=== PATIENT | male | born 1955 | race Caucasian/White ===

== ENCOUNTER 2016-10-23 00:27 | Day surgery (SDC) | payer MEDICARE ==
[~2016-10-23] VITALS: Ht 182.9 cm; Wt 70.5 kg
[2016-10-23] VITALS (13 sets, daily range): BP systolic 88–98; BP diastolic 52–58; PULSE 66–80; RESP 14–27; O2SAT 90–96
[~2016-10-23 00:27] MED LIST: ASPI-973 PO; ATOR80TA PO; CARV6.252 PO; INSU100I SUBQ; INSU100I13 SUBQ; LAN125 PO; LORA-302 PO; MIRT45TA5 PO; PANT20TA2 PO; SACU1TAB PO; SPIR50TA2 PO; TORS20TA3 PO
[2016-10-23] MEDS ORDERED: 0.9% Sodium Chloride 1,000 ML ONE (09:58)
[2016-10-23 10:57] LABS: BASOPHILS % (AUTO) 0.6 % (0-3); EOSINOPHILS % (AUTO) 0.8 % (0-5); MONOCYTES % (AUTO) 6.7 % (4-12); Mean Corpuscular Hemoglobin 31.5 pg (27.0-35.0); Mean Corpuscular Volume 91.7 fL (81-100); NEUTROPHILS % (AUTO) 80.8 % (40-74); Platelet Count 284 bil/L (150-400)
[2016-10-23] MEDS ORDERED: 0.9% Sodium Chloride 1,000 ML IV SCH (11:00)
--- NOTE | 2016-10-23 11:46 | NUR ---
JULIEN Admit to [facility] at 1030. Son at bedside and will return for transport home. Patient denies pain at this time. HL X 2 placed and labs obtained. Consent in chart and confirmed. Left foot wound dressing pr wound care in [place]. History and medications reviewed. Pre-procedure teaching done and questions answered.
[2016-10-23] MEDS ORDERED: Heparin 5,000 Units/500 mL NS Premix IV ONE (11:58)
[2016-10-23] MEDS ORDERED: Heparin 1,000 Unit/mL 10 mL Inj ONE ×2 (11:58→13:04)
[2016-10-23] MEDS ORDERED: fentaNYL-PF 50 mCg/mL 2 mL Inj ONE (13:04)
--- NOTE | 2016-10-23 14:32 | DI96 ---
[address] [address] PERIPHERAL CATHETERIZATION/INTERVENTION REPORT PATIENT: DAVID LOPES : 1955 MR#: [id number] ADMIT: 10/23/2016 JOB ID: [id number] PROCEDURE: Abdominal angiography with runoff. INDICATION: Nonhealing ulcer. PROCEDURAL DETAILS: The reader is referred to the procedure log for complete details. Briefly, it was done via right femoral approach using a 4-Jordanian system. A 4-Jordanian pigtail was placed in the distal abdominal aorta and runoff was performed. Selective iliac angiography was also performed. ANGIOGRAPHIC FINDINGS: 1. Aorta is mildly calcified distally but no critical stenosis. 2. Bilateral common iliac arteries are patent. 3. Bilateral internal iliac arteries are patent. 4. Bilateral common iliac arteries are patent. 5. Bilateral profunda is patent. 6. The right superficial femoral artery in its proximal to mid segment has no significant stenosis. Mild luminal irregularities are noted. In its mid to distal segment it has a 50% to 60% lesion. The left SFA proximally has a 40% to 50% lesion; in its mid segment it has a 30% to 40% lesion. 7. Bilateral popliteal arteries are patent. 8. Anterior tibial artery is bilaterally occluded proximally. Tibioperoneal trunk is patent bilaterally. 9. The posterior tibial artery is seen all the way up to the ankle. The peroneal artery is also seen all the way up until the distal leg. Faint reconstitution of the anterior tibial is seen via collaterals distally up until the mid leg. Of note, the left peroneal artery has a 30% to 40% lesion in its proximal segment. No critical stenosis is noted. In summary, this gentleman does not have any critical stenosis in his inflow or outflow. The SFA disease is modest and was overestimated by his duplex. He does have infrapopliteal disease, but at this point he has got two-vessel runoff up until the ankle and the posterior tibial supplies the rest of the foot. This should allow wound healing. His anterior tibial arteries on both sides are severely and diffusely diseased and not truly amenable to percutaneous intervention. I would persist with conservative measures. I have taken the liberty of adding Plavix to his current regimen.
--- NOTE | 2016-10-23 18:13 | NUR ---
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 Son at bedside. Patient denies pain. Mostly sleeping. No bleeding or hematoma at right groin site. Pedal pulses present. Prior to discharge taking PO, ambulatory and void. Instructions reviewed with patient and son, written information given and questions answered.
== END 2016-10-23 23:59 | disposition home or self-care (01) ==
LOC: SOUO 00:27 → EDSTATUS 13:55 → SOUO 23:59
PROVIDERS: ATTEND Internal Medicine Cardiovascular Disease
DX: I70.245 Atherosclerosis of native arteries of left leg with ulceration of other part of foot (principal); L97.529 Non-pressure chronic ulcer of other part of left foot with unspecified severity; I70.201 Unspecified atherosclerosis of native arteries of extremities, right leg; E11.621 Type 2 diabetes mellitus with foot ulcer; E11.42 Type 2 diabetes mellitus with diabetic polyneuropathy; F17.200 Nicotine dependence, unspecified, uncomplicated; I50.22 Chronic systolic (congestive) heart failure; I25.5 Ischemic cardiomyopathy; I48.0 Paroxysmal atrial fibrillation; E78.5 Hyperlipidemia, unspecified; I10 Essential (primary) hypertension; I25.10 Atherosclerotic heart disease of native coronary artery without angina pectoris; I27.2 Other secondary pulmonary hypertension; I48.92 Unspecified atrial flutter; J44.9 Chronic obstructive pulmonary disease, unspecified; I44.7 Left bundle-branch block, unspecified; I25.2 Old myocardial infarction; Z79.899 Other long term (current) drug therapy; Z79.4 Long term (current) use of insulin; Z95.5 Presence of coronary angioplasty implant and graft; Z79.82 Long term (current) use of aspirin; Z95.810 Presence of automatic (implantable) cardiac defibrillator
CPT/HCPCS: 36200; 36415; 75716; 80048; 85025; 93005; C1769; J1200; J1644; J2060; J2250; Q9967

== ENCOUNTER 2016-12-06 17:21 | Inpatient (IN) | payer MEDICARE ==
[~2016-12-06] VITALS: Ht 182.9 cm; Wt 75.3 kg
[2016-12-06 20:05] VITALS: BP 89/68; PULSE 88; RESP 18; O2SAT 97
[2016-12-06] MEDS ORDERED: Atropine 1 mg/10 mL (Code) Syringe IVPUSH PRN (20:20)
[2016-12-06] MEDS ORDERED: Ondansetron 2 mg/mL 2 mL Inj IVPUSH PRN (20:20)
[2016-12-06] MEDS ORDERED: Furosemide 10 mg/mL 10 mL Inj IVPUSH SCH (20:30)
[2016-12-06] MEDS ORDERED: LORazepam 0.5 mg Tablet PO PRN (20:35)
--- NOTE | 2016-12-06 20:43 | PCM.HPMED ---
Subjective Date of Service Dec 06, 2016 Primary Provider: Admitting Physician: Phong Paredes MD Primary Care Physician: Lali Gabriel PA-C Attending Physician: Phong Paredes MD Admit Status: Direct Admit, [facility] Telemetry Chief Complaint: Patient is here transferred from [facility] for further evaluation of increasing shortness of breath, increasing pedal edema, elevated liver enzymes, acute renal failure History of Present Illness: Is a 61-year-old male with a history of end-stage cardiomyopathy who is followed by Dr. Miguel while here at [facility]. According to records from [facility] his last ejection fraction is 12%. Patient also notes that he has recently been hospitalized at [facility]. He is somewhat of a vague historian however. Apparently he also was diagnosed with recent C. difficile colitis. An had undergone by mouth and IV vancomycin as well as by mouth Flagyl according to would be Gen.'s ER note. Patient presented to the emergency room at [facility] for increasing shortness of breath and increasing pedal edema. 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. Findings it would be [facility] included acute on chronic renal failure. His BUN was noted to be 81 with a creatinine of 2.2 calculated GFR is 31. Her would be Gen.'s note BNP is more elevated than usual at 4000-55. Total bili is noted to be 6.4 AST is 1568 and ALT is 693 alkaline phosphatase is 478 had any recent records available from other hospitals. INR is 2.3. Lactic acid is 3.4 troponin 0.06. Digoxin level is 0.5. Patient does deny any chest pain or coughing. He denies any fevers or chills. Review of Systems: Denies any change in urination. All other review of systems are negative except for as in history of present illness. Allergies Coded Allergies: No Known Allergies (Verified Allergy, Unknown, 07/03/15) Home Medications Atorvastatin 80 mg by mouth daily Coreg 6.25 mg by mouth twice a day Digoxin 125 g by mouth daily NovoLog 1 unit subcutaneous when necessary Lantus 45 units subcutaneous at at bedtime daily Claritin 10 mg by mouth daily Mirtazapine 1 tablet by mouth daily Protonix 20 mg by mouth twice a day Entresto of 2426 one tab by mouth twice a day Spironolactone 1 tab by mouth daily Torsemide 20 mg by mouth twice a day Metformin thousand milligrams by mouth twice a day Please note that these medication list was obtained from [facility] emergency room note. PMH History of cardiomyopathy and CAD with EF 12% Recent history of C. difficile colitis History of anxiety History of COPD Peripheral neuropathy Type II diabetes History of chronic kidney disease Family History History of coronary artery disease Social History Hx Alcohol Use: No Hx Substance Use: Yes Hx Tobacco Use: Yes (45 year hx of smoking; quit 2 weeks ago) Smoking Status: Current Every Day Smoker Living Arrangement: with Family Exam Vital Signs Vital Sign - Last Date Time Temp Pulse Resp B/P Pulse Ox O2 Delivery O2 Flow Rate FiO2 12/06/16 20:05 36.5 88 18 89/68 97 Nasal Cannula 2.00 Exam Constitutional: Disheveled male who looks older than his stated age and is somewhat cachectic Head: Normal cephalic atraumatic Chest: Some crackles at his bases bilaterally Cor: Regular rate and rhythm S1-S2 Abdomen: Soft nontender bowel sounds present Extremities reveal 1+ bilateral pedal edema with wound on left foot laterally no significant exudate noted Skin: No rashes does appear icteric Psych: Blunted affect Neuro: Alert and oriented 3, motor strength is intact bilaterally Lab and Diagnostics Labs As in history of present illness also to include white count 11.3 hematocrit 35.9 MCV 90.4 platelets 202 with sodium 125 potassium 5.5 chloride 90 bicarbonate 20 anion gap 15 BUN 81 creatinine 2.2 glucose 306 calcium 8.5 total bili 6.4 total protein 6.9 albumin 3.6 mL the medicine less than 10 salicylates less than 6.0 digoxin 0.5 X-Rays, CTs and MRIs Chest x-rays pending at the time of this dictation 12-lead ECG EKG is paced sensed ventricular paced at rate of 94 Additional Diagnostics: PATIENT: DAVID LOPES : 1955 MR#: [id number] ADMIT: 10/23/2016 JOB ID: [id number] PROCEDURE: Abdominal angiography with runoff. INDICATION: Nonhealing ulcer. PROCEDURAL DETAILS: The reader is referred to the procedure log for complete details. Briefly, it was done via right femoral approach using a 4-Luxembourgish system. A 4-Luxembourgish pigtail was placed in the distal abdominal aorta and runoff was performed. Selective iliac angiography was also performed. ANGIOGRAPHIC FINDINGS: 1. Aorta is mildly calcified distally but no critical stenosis. 2. Bilateral common iliac arteries are patent. 3. Bilateral internal iliac arteries are patent. 4. Bilateral common iliac arteries are patent. 5. Bilateral profunda is patent. 6. The right superficial femoral artery in its proximal to mid segment has no significant stenosis. Mild luminal irregularities are noted. In its mid to distal segment it has a 50% to 60% lesion. The left SFA proximally has a 40% to 50% lesion; in its mid segment it has a 30% to 40% lesion. 7. Bilateral popliteal arteries are patent. 8. Anterior tibial artery is bilaterally occluded proximally. Tibioperoneal trunk is patent bilaterally. 9. The posterior tibial artery is seen all the way up to the ankle. The peroneal artery is also seen all the way up until the distal leg. Faint reconstitution of the anterior tibial is seen via collaterals distally up until the mid leg. Of note, the left peroneal artery has a 30% to 40% lesion in its proximal segment. No critical stenosis is noted. In summary, this gentleman does not have any critical stenosis in his inflow or outflow. The SFA disease is modest and was overestimated by his duplex. He does have infrapopliteal disease, but at this point he has got two-vessel runoff up until the ankle and the posterior tibial supplies the rest of the foot. This should allow wound healing. His anterior tibial arteries on both sides are severely and diffusely diseased and not truly amenable to percutaneous intervention. I would persist with conservative measures. I have taken the liberty of adding Plavix to his current regimen. Assessment & Plan # Acute on chronic systolic congestive heart failure, present on admission - We will proceed with IV Lasix diuresis - Check echocardiogram in a.m. -Check serial cardiac enzymes -Also await further input per cardiology - I did discuss with patient if he is on the heart transplant list and apparently he is not a candidate for this -Check serial BNPs # Acute elevation of liver enzymes, present on admission - We will check abdominal ultrasound - May be due to congestive heart failure and passive congestion of liver -Check acute hepatitis panel # Acute on chronic renal failure, present on admission - Check urinalysis - Check abdominal ultrasound and monitor for elevated postvoid residual - Consider nephrology consultation tomorrow a.m. - May be secondary to poor renal perfusion due to congestive heart failure # Electrolyte disturbances including hyponatremia and borderline hyperkalemia, acute, present on admission - We will hold spironolactone for now and believe this is secondary to acute congestive heart failure and volume overload - Proceed with IV Lasix diuresis # Recent diagnosis of C. difficile colitis, present on admission - According to would be general ER records he is having 3-4 loose stools daily and patient does corroborate that although he is a poor historian so will monitor stool output here - We will place an enteric precautions and check GI PCR -Get records from [facility] in [facility] # Foot ulcer, chronic, present on admission - Wound care consult -Does not appear to be infected # Type II diabetes, chronic, present on admission - Check hemoglobin A1c -Continue his Lantus dosing -Placed on subcutaneous NovoLog protocol # Elevated INR, acute, present on admission - Patient is not on warfarin therapy -Most likely secondary to ongoing acute liver disease -We will give a dose of vitamin K. # DVT prophylaxis - Patient has elevated INR as noted above this will not use subcutaneous anticoagulant but will use SCDs. # CODE STATUS - Discussed with patient and wishes full code Pain Evaluation: Adequate Pain Control GI Prophylaxis: Proton Pump Inhibitor VTE Prophylaxis: SCDs, Other (patient has elevated INR) Resuscitation Status: CPR: Attempt Resuscitation Time spent 60 minutes Umm Jha MD Dec 06, 2016 20:43
[2016-12-06] MEDS ORDERED: Glucose 40% Oral Gel 15 Gm Tube PO PRN (20:45)
[2016-12-06] MEDS ORDERED: Insulin GLARgine 100 Unit/mL Syringe SUBQ SCH (21:00)
--- NOTE | 2016-12-06 21:19 | DRSVH ---
PROCEDURE: X-RAY CHEST ONE VIEW, PORTABLE ([id number]) INDICATIONS: shortness of breath TECHNIQUE: One view of the chest was acquired. COMPARISON: [facility], [facility], CHEST 1 VIEW, 11/29/2016, 17:19. [facility], CR, XR [address] 2VW, 07/07/2015, 9:37. FINDINGS: Surgical changes and devices: Cardiac AICD Lungs and pleura: No pleural effusions or pneumothorax. Lungs are clear. Mediastinum: Mediastinal contours appear normal. Heart size is stable. Bones and chest wall: No suspicious bony lesions. Overlying soft tissues appear unremarkable. IMPRESSION: No acute disease Dictated by: Sebastian Ibarra M.D. on 12/06/2016 at 21:17 Approved by: Sebastian Ibarra M.D. on 12/06/2016 at 21:18
[2016-12-06] MEDS ORDERED: Insulin LISPRO 300 Unit/3 mL Inj SUBQ SCH (22:00)
[2016-12-06 22:10] LABS: TROPONIN T 0.019 ug/L (0.0-0.011)
[2016-12-06] MEDS ORDERED: Phytonadione (Adult) 10 mg/1 mL Inj PO ONE (22:35)
[2016-12-07 00:22] VITALS: BP 84/60; PULSE 86; RESP 21; O2SAT 97
[2016-12-07] MEDS ORDERED: Sodium Chloride LOK Flush 10 mL Syringe IVFLUSH SCH (00:30)
--- NOTE | 2016-12-07 00:34 | NUR ---
CCU Admit note Admitted patient from [facility] @ 1945 via EMS. Alert and oriented x 3, drowsy, appropriate, c/o generalized body weakness. Hypotensive with sbp 80's, map>60's, HR 80's SR, sp02 >92% on 2LPM via NC, has left foot chronic wound, dressing changed, for wound consult AM. MRSA nasal screen sent, contact enteric precaution for possible C.diff, had small BM, sent stool specimen. Given lasix 80 mg IV, pt has not voided despite multiple attempts to void, bladder scanned 915 ml, inserted adams, drained large amt dark sampson uo. INR 2.0, given vitamin K po.
[2016-12-07 00:41] LABS: APPEARANCE,URINE CLEAR (CLEAR,HAZY); COLOR,URINE DARK YELLOW (YELLOW); OCCULT BLOOD,URINE NEGATIVE (NEGATIVE); UROBILINOGEN,URINE NORMAL (NORMAL)
[2016-12-07 00:42] LABS: ICTOTEST,URINE POSITIVE (Negative)
[2016-12-07] MEDS ORDERED: 0.9% Sodium Chloride 500 ML IV ONE (03:05)
[2016-12-07 03:29] LABS: BASOPHILS % (AUTO) 0.3 % (0-3); EOSINOPHILS % (AUTO) 0.8 % (0-5); MONOCYTES % (AUTO) 14.3 % (4-12); Mean Corpuscular Hemoglobin 30.1 pg (27.0-35.0); Mean Corpuscular Volume 85.3 fL (81-100); NEUTROPHILS % (AUTO) 62.5 % (40-74); Platelet Count 194 bil/L (150-400)
[2016-12-07 03:51] LABS: INR 2.02 ratio
[2016-12-07] MEDS ORDERED: DOPamine 800 mg/250 mL D5W Premix IV ONE ×2 (03:53→10:53)
[2016-12-07 04:30] VITALS: BP 82/66; PULSE 124; RESP 22; O2SAT 96
[2016-12-07 04:30] LABS: TROPONIN T 0.029 ug/L (0.0-0.011)
[2016-12-07] MEDS ORDERED: Norepinephrine 8,000 mCg/250 mL NS Premix IV ONE (05:21)
[2016-12-07] MEDS ORDERED: Norepinephrine 8,000 mCg/250 mL D5W Premix IV SCH (05:30)
[2016-12-07] MEDS ORDERED: Digoxin 0.25 mg/mL 2 mL Inj IV ONE ×3 (06:03→07:10)
[2016-12-07] MEDS ORDERED: DOBUTamine 500 mg/250 mL D5W Premix IV ONE (06:42)
[2016-12-07] MEDS ORDERED: Amiodarone 150 mg/100 mL D5W Premix IV ONE (06:43)
[2016-12-07] MEDS ORDERED: Amiodarone 360 mg/200 mL D5W 360 MG, Filter, Taxol 14256-28 1 EACH in IV Premix 1 EACH IV SCH (07:00)
[2016-12-07] MEDS ORDERED: Amiodarone 360 mg/200 mL D5W Premix IV ONE (07:05)
[2016-12-07] MEDS ORDERED: IV Premix 1 EACH IV ONE (07:05)
[2016-12-07] MEDS ORDERED: Amiodarone 150 mg/100 mL D5W 150 MG in IV Premix 1 EACH IV ONE (07:10)
[2016-12-07] MEDS ORDERED: 0.9% Sodium Chloride 250 ML IV SCH (07:15)
[2016-12-07] MEDS ORDERED: DOBUTamine 500 mg/250 mL D5W IV SCH (07:15)
--- NOTE | 2016-12-07 07:22 | ABG ---
DateTimeAnalyzed 07:14:00 -_ pH ____7.404 - 7.350 7.450 pCO2 ___21.4__ -mmHg 35.0 45.0 pO2 ___83.0__ -mmHg 69.0 116 HCO3- ___13.1__ -mmol/L 22.0 26.0 ABE ___-9.7__ -mmol/L -2.0 2.0 tHb ___12.2__ -g/dL O2Hb ___92.9__ -% COHb ____1.5__ -% MetHb ____0.8__ -% sO2 ___95.1__ -% 25.0 FIO2 ___21.0__ -% Drawn By MT - Date/Time Notified____ 07:21:00 -_ Liter_Flow ___15.0__ -L/min Oxygen Device 1 SIMP MASK - Notified By MT - Notified Whom __Kubisty - B 763 -mmHg tO2 ___16.0__ -Vol% Emiliano test N/A -
[2016-12-07 08:00] VITALS: BP 75/60; PULSE 114; RESP 22; O2SAT 90
--- NOTE | 2016-12-07 08:03 | NUR ---
Hypotension/Agitation Given ativan 0.5mg po for anxiety. Hypotensive sbp 60's-80's, HR 80's most of the night, increased HR around 0400 to 120-139, rhythm change ST vs afib rvr, Pt nauseated and more agitated this AM. Hung 500cc NS bolus over 2 hrs and additional 250 cc NS this AM, dopamine gtt was started @ low dose, then,weaned off and switched to levo gtt due to increased HR. Pt adamant to get the adams out despite education and urinary retention, dc'd @ 0430, HR remain up in the 130's, Digoxin 0.25 mg IV x 2 given, amio 150mg bolus x 1, started dobutamine gtt @ 2.5 mcg/kg/min, HR improving to 100's ST with PVC's, 12 lead ekg done, Attending MD at bedside.
[2016-12-07] MEDS ORDERED: Insulin Human REGular Inj 100 UNIT in 0.9% Sodium Chloride-Pha MIX 100 ML IV SCH (08:11)
[2016-12-07] MEDS ORDERED: Pantoprazole 20 mg ER24 Tablet PO SCH (08:30)
[2016-12-07] MEDS ORDERED: ENTRESTO PO SCH (08:30)
--- NOTE | 2016-12-07 08:39 | PCM.PNMED ---
Subjective Date of Service Dec 07, 2016 Subjective Patient quite somnolent this morning. No ROS could be completed. Overnight, the patient was started on dobutamine and norepinephrine. BiPAP was used for a time but currently he was on oxymask. Amiodarone drip started for a narrow complex tachycardia. Exam Vital Signs Vital Sign - Last Date Time Temp Pulse Resp B/P Pulse Ox O2 Delivery O2 Flow Rate FiO2 12/07/16 06:09 134 12/07/16 04:30 36.1 22 82/66 96 Room Air 12/06/16 20:05 2.00 Intake and Output 12/06/16 12/06/16 12/07/16 Cumulative From/Thru 15:00 23:00 07:00 12/06/16 20:00 - 12/07/16 05:31 Intake Total 948 ml 948 ml Output Total 1200 ml 1200 ml Balance -252 ml -252 ml Intake Oral 440 ml 440 ml IV Total 508 ml 508 ml Output Urine Total 1200 ml 1200 ml # Bowel Movements 1 1 Exam General: Patient with oxymask in place, laying in ICU bed, somnolent, no acute distress Mouth: no thrush appreciated, mucous membranes dry Neck: No JVD appreciated, no lymphadenopathy CV: Regular rate and rhythm with no murmur appreciated Respiratory: Expiratory wheezes and otherwise clear breath sounds anteriorly Abdomen: slow bowel tones, non-tender, soft, no organomegaly appreciated Extremities: moderate pitting edema present in both lower extremities; no cyanosis or clubbing present; Left PICC line Pulses: radial pulse present and equivalent bilaterally, dorsalis pedis pulse difficult to appreciate bilaterally Skin: Cool and dry, wound present on left foot : Manzano currently not in place IVs and Medications Medications Reviewed: Medications were reviewed in detail Lab and Diagnostics Result Diagram: 12/07/16 0300 12/07/16 0300 X-Rays, CTs and MRIs PROCEDURE: X-RAY CHEST ONE VIEW, PORTABLE IMPRESSION: No acute disease Dictated by: Sebastian Ibarra M.D. on 12/06/2016 at 21:17 Additional Diagnostics Assessment & Plan Patient is a 71 year old male with a history of systolic CHF, CKD, type 2 DM, and COPD. He presented to [facility] ED on 12/06/16 and direct admitted to [facility] per Dr. Chaney's recommendation. Patient admitted to the ICU and in need of pressor support. Hospital day #1. 1. Acute on chronic systolic congestive heart failure, present on admission - Echo ordered and pending. Last known echo showed EF 10-15%. - Received one dose of IV Lasix overnight. Does not appear to be terribly fluid overloaded at this time. Will hold further dosing and monitor closely. - Would like Dr. Dunne of cardiology to follow along as patient is requiring pressor support. - Continue inotropic support with dobutamine at this time. 2. Acute elevation of liver enzymes, present on admission. - Uncertain of exact etiology at this time. Concern for possible gallstone or congestive hepatopathy/shock liver. - Abdominal ultrasound pending radiologist interpretation. - Dr. King of GI has been consulted and we appreciate his input. - Continue to monitor CMP. - Viral hepatitis panel ordered and pending. 3. Acute on chronic renal failure, present on admission - May be secondary to poor renal perfusion due to congestive heart failure. - Baseline appears to be closer to 1.3. - Abdominal ultrasound ordered and pending. - Will consult Dr. Vizcarra of nephrology and we appreciate her input. 4. Narrow complex ventricular tachycardia, acute, ongoing. - Rate persisting in the 130s. - Amiodarone drip ordered and started. - Continue close telemetry monitoring. - We would appreciate an opinion from Dr. Dunne. 5. Hypotension, acute, ongoing. - Records from [place] indicate hypotension at their facility as well. - Patient requiring pressor support. - Norepinephrine to continue with goal SBP >85. 6. Hyponatremia, acute, present on admission. - Continue to monitor BMP. - Limit free water intake. - Dr. Vizcarra to be consulted as above in #3. 7. Elevated INR, acute, present on admission - Patient is not known to be undergoing chronic anticoagulation therapy. Possibly secondary to ongoing acute liver disease. - Continue to monitor closely. 8. Recent diagnosis of C. difficile colitis, present on admission - Uncertain of the exact history of this and if patient has undergone treatment. - Monitor for BM closely. Awaiting stool PCR. - Enteric contact precautions until more information known. 9. Recent left metatarsal amputation secondary to osteomyelitis with chronic left foot wounds, present prior to admission. - Surgery done at [place] on 11/12/16. - Will ask for consultation from Dr. Taylor on Thursday AM. - Wound care consult ordered and pending. - Float heals and do Q2 turns. - Has been evaluated for possible re-vascularization of the lower extremity. 10. Type II diabetes, chronic, present on admission. - A1c ordered and pending. Uncertain of previous measurement. - Non-DKA insulin drip initiated for better blood glucose control. - Patient currently NPO. Disposition: Patient appears to be critically ill at this time requiring pressor support. Anticipate he will need quite a few days of evaluation and therapy for his numerous chronic conditions that appear to have decompensated. GI Prophylaxis: Proton Pump Inhibitor VTE Prophylaxis: SCDs, Other (patient has elevated INR) Resuscitation Status: CPR: Attempt Resuscitation Attending Statement The patient was seen and examined together with Dr. Lee on 12/07/2016 and I agree with the history, exam and plan as outlined in the note above. . Kirstin Lee DO Dec 07, 2016 08:39 Phong Paredes MD Dec 08, 2016 09:00 # Type II diabetes, chronic, present on admission - Check hemoglobin A1c -Continue his Lantus dosing -Placed on subcutaneous NovoLog protocol # Elevated INR, acute, present on admission - Patient is not on warfarin therapy -Most likely secondary to ongoing acute liver disease -We will give a dose of vitamin K. # DVT prophylaxis - Patient has elevated INR as noted above this will not use subcutaneous anticoagulant but will use SCDs. # CODE STATUS - Discussed with patient and wishes full code GI Prophylaxis: Proton Pump Inhibitor VTE Prophylaxis: SCDs, Other (patient has elevated INR) Resuscitation Status: CPR: Attempt Resuscitation Kirstin Lee DO Dec 07, 2016 08:39
--- NOTE | 2016-12-07 08:45 | DRSVH ---
PROCEDURE: US ABDOMEN ([id number]) INDICATIONS: elevated LFTs TECHNIQUE: Real-time scanning was performed of the abdominal and retroperitoneal organs, with image documentatio n. COMPARISON: None. FINDINGS: Liver: The liver measures 21.0 cm in length and demonstrates normal echotexture. Gallbladder: The gallbladder wall measures up to 4.6 mm in thickness. There is trace pericholecystic fluid. No stones or sludge. Biliary ducts: Intrahepatic bile ducts are non-dilated. Extrahepatic bile duct caliber measures 4.6 mm. Normal is 6-7 mm or less in diameter, or 10 mm or less post-cholecystectomy. Pancreas: Visualized portions of the pancreas are sonographically normal. Spleen: Spleen is normal in size and homogeneous in echotexture. Kidneys: Kidneys are normal in size and echotexture. Right kidney measures 10.5 cm long; left kidne y measures 9.0 cm long. No hydronephrosis or nephrolithiasis. No solid masses. Aorta: The aorta is not visualized due to bowel gas. Iliacs: The iliacs are not visualized. IVC: Intrahepatic inferior vena cava is patent. Miscellaneous: A small amount of fluid is visualized within the bilateral upper quadrants. IMPRESSION: 1. Small amount of hepatosplenic free fluid. 2. No gallstones. Gallbladder wall thickening and pericholecystic fluid. It is unclear whether the ga llbladder wall thickening is secondary to gallbladder hydrops in the setting of more diffuse ascites, or if the gallbladder wall thickening and pericholecystic fluid are associated with acalculous yolette cystitis. If clinical findings are equivocal for cholecystitis, HIDA scan may be helpful to further c haracterize findings. Dictated by: Jasmina Mcgregor M.D. on 12/07/2016 at 8:40 Approved by: Jasmina Mcgregor M.D. on 12/07/2016 at 8:44
--- NOTE | 2016-12-07 11:40 | DRSVH ---
PROCEDURE: X-RAY CHEST ONE VIEW, PORTABLE ([id number]) INDICATIONS: IV tip placement TECHNIQUE: One view of the chest was acquired. COMPARISON: [facility], CR, XR CHEST 1VW (PORTABLE), 12/06/2016, 20:38. None. FINDINGS: Surgical changes and devices: There is a new left PICC, the tip of which is in the right brachiocepha lic vein. Cardiac defibrillator is unchanged. Lungs and pleura: There is diffuse interstitial prominence. Mediastinum: Mediastinal contours appear normal. Heart size is enlarged, as before. Bones and chest wall: No suspicious bony lesions. Overlying soft tissues appear unremarkable. IMPRESSION: 1. New left PICC, the tip of which is in the right brachiocephalic vein and should be repositioned. 2. Interstitial prominence and cardiomegaly suggesting fluid overload. Dictated by: Jasmina Mcgregor M.D. on 12/07/2016 at 11:37 Approved by: Jasmina Mcgregor M.D. on 12/07/2016 at 11:38
--- NOTE | 2016-12-07 11:58 | NUR ---
New PICC line pt found. XR done for tip placement confirmation. Line placed at [facility], on or about 2016, for LTA (osteomyelitis). Line read to be in azygous vein by Dr. Mcgregor. Dr. Nava notified; order to retract line by 2cm. Done with dressing change. 1View chest done, and line now is RIGHT brachiocephalic vein (Dr. Mcgregor). RN made aware, and she will call IVT with instructions.
[2016-12-07 12:00] VITALS: BP 73/59; PULSE 114; RESP 19; O2SAT 88
--- NOTE | 2016-12-07 12:00 | NUR ---
Positive C-Diff & Norovirus Contact, Enteric, Droplet Isolation strictly enforced.
[2016-12-07] MEDS ORDERED: Sodium Chloride LOK Flush 10 mL Syringe IVFLUSH PRN ×2 (12:05)
--- NOTE | 2016-12-07 12:12 | DRSVH ---
[facility] [address] [place] [address] Echocardiogram Report Name: DAVID LOPES Date: 12/07/2016 Height: 72 in Hospital Exam Location: [facility] Weight: 166 lb Gender: Male BSA: 2.0 m2 : 1955 Age: 61 yrs BP: 82/66 mmHg Reason For Study: HEART FAILURE Ordering Physician: HOSPITALIST [facility] Performed By: Libby Bean Referring Physician: KAMILLE Gabriel Interpretation Summary The left ventricle is severely dilated. Left ventricular systolic function is severely reduced. The ejection fraction is estimated to be 10-15%. The right ventricle is moderately dilated. Right ventricular systolic function is severely reduced. Both atria are severely dilated. There is severe mitral regurgitation. There is severe pulmonary hypertension. The right ventricular systolic pressure is estimated at 68 mmHg assuming a right atrial pressure of 15 mm Hg. The IVC is dilated (diameter is greater than 2.1 cm) and it collapses less than 50% with a sniff. This suggests a high right atrial pressure of 15 mm Hg. Compared to the prior exam, left ventricular function is moderately decreased. No other echocardiographic abnormalities seen. Procedure: A two-dimensional transthoracic echocardiogram with color flow and Doppler was performed. The study quality was technically good. Comparison is made with the echocardiogram of 08-17-2014. The patient has a paced rhythm. Left Ventricle: The left ventricle is severely dilated. Left ventricular systolic function is severely reduced. The ejection fraction is estimated to be 10-15%. Compared to the prior exam, left ventricular function is moderately decreased. There is left ventricular diastolic dysfunction. Right Ventricle: The right ventricle is moderately dilated. Right ventricular systolic function is severely reduced. Atria: Both atria are severely dilated. There is no Doppler evidence for an atrial septal defect. Mitral Valve: The mitral valve leaflets appear mildly thickened, but open well. There is severe mitral regurgitation. Aortic Valve: The aortic valve is trileaflet. The aortic valve opens well. No aortic regurgitation is present. Tricuspid Valve: The tricuspid valve leaflets are thin and pliable. There is moderate tricuspid regurgitation. The right ventricular systolic pressure is estimated at 68 mmHg assuming a right atrial pressure of 15 mm Hg. There is severe pulmonary hypertension. Pulmonic Valve: The pulmonic valve is not well seen, but is grossly normal. There is moderate pulmonic regurgitation. Great Vessels: The aortic root is normal size. The dimensions of the ascending aorta are normal. The pulmonary artery is normal size. The IVC is dilated (diameter is greater than 2.1 cm) and it collapses less than 50% with a sniff. This suggests a high right atrial pressure of 15 mm Hg. Pericardium/ Pleura There is no pericardial effusion. There is a small right-sided pleural effusion. MMode/2D Measurements & Calculations LVIDd: 7.6 cm LA dimension: 5.5 cm RA long axis LVOT diam LVIDs: 7.5 cm FS: 1.8 % LA A2 area: 38.0 cm RA area AoV Opening EPSS: 3.4 cm LA A4 area: 35.2 cm IVSd: 0.58 cm LA length (vol): 7.5 cm: 30.3 cm Ao root diam LVPWd: 0.99 cm LA vol: 150.7 ml RA vol LA vol index : 126.ml asc Aorta RA Diam: 3.4 cm : 64.0 mm/ IVC diam: 2.7 cm RVDd major : 7.9 cm LV rae. diameter/BSA LV sys. diameter/BSA RVD2 (mid) (cm/m^2): 3.9 (cm/m^2): 3.8 : 4.6 cm Doppler Measurements & Calculations Ao V2 max MV E max eliseo MV E/A: 3.3 TR max eliseo : 113.5 cm/sec : 125.6 cm/sec Med Peak E' Eliseo : 363.8 cm/sec Ao max PG MV A max eliseo TR max PG : 5.2 mmHg : 37.6 cm/sec E/E' med: 30.4 : 52.9 mmHg Ao mean PG MV P1/2t: 30.4 msecLat Peak E' Eliseo PA V2 max MR ERO: 0.69 cm2 : 61.9 cm/sec LVOT Max Eliseo E/E' lat: 20.3 PA mean PG : 62.6 cm/sec E/e' average: 25.4 : 0.74 mmHg GOLDEN(I,D): 1.6 cm MV A dur: 0.14 sec PA Accel Time sev ratio : 0.04 sec MV dec time MV P1/2t max eliseo Ao V2 mean LV V1 max PG : 0.10 sec : 74.7 cm/sec Ao V2 VTI: 11.9 cm LV V1 VTI: 5.3 cm MVA(P1/2t): 7.2 cm2 GOLDEN(V,D): 2.0 cm2 MR flow rate PA V2 mean GOLDEN indexed to BSA : 259.6 cm3/sec : 39.9 cm/sec (cm^2/m^2): 0.83 MR PISA radius Reading Physician:12:11 PM
--- NOTE | 2016-12-07 12:58 | PCM.CHPMED ---
Subjective Date of Service: Dec 07, 2016 Provider requesting consult: Phong Paredes MD Primary Physician: Admitting Physician: Phong Paredes MD Primary Care Physician: Lali Gabriel PA-C Attending Physician: Phong Paredes MD Admit Status: From the Emergency Department Chief Complaint: Chief Complaint: Abnormal Liver Function Tests History of Clostridium Difficile Colitis PMH HEENT History: Positive for:: Cataracts Glaucoma Hearing Problem Hx Ear Infection Hx Eye Problem Sinus Problem TMJ Cardiovascular History: Positive for:: Congestive Heart Failure Coronary Artery Disease Integumentary History Patient with diabetic foot ulcer in L foot Bedside Blood Glucose: 307 Allergies: Coded Allergies: No Known Allergies (Verified Allergy, Unknown, 07/03/15) Social History Hx Alcohol Use: NoHx Substance Use: NoHx Tobacco Use: Yes (45 year hx of smoking; quit 2 weeks ago) Smoking Status: Current Every Day Smoker Living Arrangement: with Family Exam Vital Signs Vital Sign - Last Date Time Temp Pulse Resp B/P Pulse Ox O2 Delivery O2 Flow Rate FiO2 12/07/16 06:09 134 12/07/16 04:30 36.1 22 82/66 96 Room Air 12/06/16 20:05 2.00 Intake and Output 12/06/16 12/06/16 12/07/16 Cumulative From/Thru 15:00 23:00 07:00 12/06/16 20:00 - 12/07/16 05:31 Intake Total 948 ml 948 ml Output Total 1200 ml 1200 ml Balance -252 ml -252 ml Intake Oral 440 ml 440 ml IV Total 508 ml 508 ml Output Urine Total 1200 ml 1200 ml # Bowel Movements 1 1 Lab and Diagnostics Result Diagram: 12/07/16 0300 12/07/16 0300 Assessment & Plan Pain Evaluation: Adequate Pain Control GI Prophylaxis: Proton Pump Inhibitor VTE Prophylaxis: SCDs, Other (patient has elevated INR) Resuscitation Status: CPR: Attempt Resuscitation Paul King MD Dec 07, 2016 12:58
--- NOTE | 2016-12-07 15:00 | NUR ---
Pt & family conference w/ Hospitalist Pt A&Ox3; decisional. Pt verbalizing clearly his desire to be full code & to transfer to [facility] for further Cardiac support. Family @ bedside, including pt's Spouse, sons, daughter.
--- NOTE | 2016-12-07 15:33 | CONS ---
[address] [address] CONSULTATION REPORT PATIENT: DAVID LOPES : 1955 MR#: [id number] ADMIT: 12/06/2016 JOB ID: [id number] DATE OF SERVICE: 12/07/2016 I have been asked by the hospitalist to assist with the patient's care. He is a 61-year-old male with a long history of chronic ischemic heart disease and severe chronic left ventricular systolic dysfunction and severe mitral regurgitation, hospitalized with progressive weakness and evidence of INCOMPLETE: Dictation ends here.
--- NOTE | 2016-12-07 15:36 | DRSVH ---
PROCEDURE: X-RAY CHEST ONE VIEW, PORTABLE ([id number]) INDICATIONS: PICC LINE PLACEMENT TECHNIQUE: One view of the chest was acquired. COMPARISON: None. FINDINGS: Surgical changes and devices: Cardiac defibrillator is unchanged. The tip of a left PICC persists in the right brachiocephalic vein. Lungs and pleura: Interstitial prominence is unchanged. No pneumothorax. Mediastinum: Mediastinal contours appear normal. Heart size is enlarged, as before. Bones and chest wall: No suspicious bony lesions. Overlying soft tissues appear unremarkable. IMPRESSION: Left PICC tip persists in the right brachiocephalic vein. Dictated by: Jasmina Mcgregor M.D. on 12/07/2016 at 15:34 Approved by: Jasmina Mcgregor M.D. on 12/07/2016 at 15:35
--- NOTE | 2016-12-07 15:51 | CONS ---
[address] [address] CONSULTATION REPORT PATIENT: DAVID LOPES : 1955 MR#: [id number] ADMIT: 12/06/2016 JOB ID: [id number] DATE OF SERVICE: 12/07/2016 HISTORY: This is a 61-year-old gentleman with a long history of chronic ischemic heart disease, severe left ventricular systolic dysfunction, and severe mitral regurgitation, hospitalized with weakness and significant hepatic dysfunction. Transferred from [facility] for further treatment. He has a long, complicated cardiac history dating back to the early 2002 area when he lived in [place]. Previous records are not detailed but indicate history of previous multiple infarctions, culminating in ultimately stent placement, ICD placement, and initiation of amiodarone because of VT. Amiodarone was subsequently stopped in 2013 for unclear reasons. He moved to [facility] around 2012 and has subsequently been followed by Dr. Chaney in our clinic. He has had a history of severe left ventricular systolic dysfunction with an ejection fraction in the range of 10% to 20% for a number of years, in addition to severe mitral insufficiency. His clinical course over the past 10 years has been complicated by multiple ICD generator replacements and lead replacements. At one point, his ICD was infected and all of that had to be removed and replaced on the right side. Most recently, he had a new right ventricular defibrillator lead inserted. This gentleman's clinical course has also been punctuated by problems of peripheral arterial disease. By report, he has had previous PCI to his left superficial femoral artery and known distal vascular disease related to his history of diabetes, hypertension, and smoking. Most recently, he was hospitalized at [place] in October of this year with osteomyelitis and underwent amputation. Subsequent to that, he reportedly developed C. difficile and was hospitalized at [facility] early last week and treated with vancomycin and Flagyl and discharged home, only to present with progressive weakness and evidence of marked elevation in transaminase levels and bilirubin. He was transferred here last night and required vasopressor support for hypotension. The etiology for his hepatic dysfunction is unclear. He does not have significant evidence of systemic venous congestion to suggest hepatic congestion from a cardiac etiology, though at the time I am seeing him this morning, he clearly has evidence of severely impaired cardiac output with Beni-Cruz respiratory pattern, poor peripheral perfusion and hypotension. This gentleman was seen a number times at the [facility] by the [facility] and considered for cardiac transplantation or possible MitraClip procedure for his severe mitral regurgitation. His last visit was with Dr. Torres at the [facility] in May 2015. He was scheduled to follow up after that, but I think his issues with peripheral arterial disease and ICD device lead issues interfered with that, and he has not been seen for the past year and a half. During this period of time, his cardiac medications were adjusted so that he is now on Entresto at low dose and carvedilol at low dose. At the time of his most recent visit with Dr. Chaney in our clinic, his medications included the followin. Low-dose aspirin 81 mg daily. 2. Carvedilol 6.25 mg b.i.d. 3. Lanoxin 125 mcg daily. 4. Entresto 24-26 mg tablets b.i.d. 5. Lipitor 80 mg daily. 6. Spironolactone 25 mg daily. 7. Torsemide 40 mg daily. In addition, he is on pantoprazole 20 mg b.i.d. and has a history of recurrent GI bleeding, contraindicating his ability to be anticoagulated for history of intermittent atrial fibrillation. He is on insulin as well. PHYSICAL EXAMINATION: At the time of my evaluation, the patient is lethargic. He is able to open his eyes and give one- or two-word answers but then falls asleep and has clear-cut Beni-Cruz respiratory pattern with consciousness fading during his apneic episodes. His blood pressures in the mid 70s on 5 mcg/kg/minute of dopamine. Jugular venous pressure is elevated, the degree of which it is elevated is difficult to say but clearly has prominent jugular venous distention. Lung dolan are unremarkable. He has an ICD in place in the right subclavian fossa, somewhat laterally. He has a prominent precordial heave with cardiac systole with a loud S3 gallop and a prominent murmur of mitral regurgitation. Abdomen is mildly tender to palpation in the right upper quadrant, but the liver does not appear enlarged or pulsatile. There is no apparent ascites. Distal extremities are cool with cyanotic kneecaps and feet. His left foot is bandaged. Right foot is moderately cyanotic and hands are cold and cyanotic. He has a mild amount of asterixis noted as well. LABORATORY DATA: Notable for a hemoglobin of 11 and hematocrit of 32. His white count is slightly increased at 10.3. Platelet count is normal at 194,000. His chemistries show hyponatremia with a sodium of 127. Creatinine is increased at 1.91. CO2 is 18. Blood sugar 232. AST is 1300 and ALT is 640. Alkaline phosphatase 422, with a total bilirubin of 3.9. Ammonia level 17. Lactic acid level increased at 2.7. Chest x-ray demonstrates cardiomegaly with ICD leads in place with evidence of increased pulmonary congestion from yesterday's x-ray. DISCUSSION: This gentleman is critically ill with a very poor cardiac output. His echocardiogram again shows severe mitral insufficiency, severe left ventricular dysfunction with an ejection fraction probably around 10%. This gentleman will likely require advanced cardiac support and I think should be considered for transfer to the [facility]. He has been seen there a number times in the past, and other than his smoking history, there was no contraindication for them to proceed with transplant evaluation or MitraClip procedure. If he can be supported for a period of time and perhaps a MitraClip procedure deployed, there may be an opportunity for him to improve. We have limited options here to help with his care, and unless the family and the patient previously decided that they do not wish advanced intervention, strong consideration should be given to transfer to the [facility]. I have spoken with the hospitalist in detail regarding these recommendations. I will be happy to assist as needed.
--- NOTE | 2016-12-07 15:53 | NUR ---
Social Work-screening/discharge: Data:EMR reviewed. Pt is on day 1 of hospitalization for acute hepatic failure per H&P. Pt's insurance is X-1 and PCP is MARLENA Merida. EMR REviewed. SW updated by distance learning administrator that pt is being airlifted to [facility] today at 1700. No other SW needs identified. All updated and agreeable to plan. Assessment:Pt to be transferred to [facility]. Plan:Pt to transfer to [facility] today via airflight at 1700. No other SW needs. AUSTIN Morin
[2016-12-07 16:00] VITALS: BP 85/62; PULSE 124; RESP 19; O2SAT 88
[2016-12-07] MEDS ORDERED: Furosemide 10 mg/mL 10 mL Inj IVPUSH ONE (16:05)
--- NOTE | 2016-12-07 16:19 | PCM.DC.MED ---
Discharge Summary Date of Service Dec 07, 2016 Dates of Hospitalization Date of Hospital Admission Dec 06, 2016 at 19:42 Date of Discharge: Dec 07, 2016 Providers: Admitting Physician: Phong Paredes MD Primary Care Physician: Lali Gabriel PA-C Attending Physician: Phong Paredes MD Diagnosis at Time of Discharge Diagnosis at Time of Discharge 1. Acute on chronic systolic congestive heart failure, present on admission 2. Acute elevation of liver enzymes, present on admission. 3. Acute on chronic renal failure, present on admission 4. Narrow complex ventricular tachycardia, acute, ongoing. 5. Hypotension, acute, ongoing. 6. Hyponatremia, acute, present on admission. 7. Elevated INR, acute, present on admission 8. Recent diagnosis of C. difficile colitis, present on admission 9. Recent left metatarsal amputation secondary to osteomyelitis with chronic left foot wounds, present prior to admission. 10. Type II diabetes, chronic, presume stable at time of admission. Consultations Luis A Dunne MD (cardiology) Marco King MD (gastroenterology) Procedures XRay, CTs & MRIs PROCEDURE: X-RAY CHEST ONE VIEW, PORTABLE FINDINGS: Surgical changes and devices: Cardiac defibrillator is unchanged. The tip of a left PICC persists in the right brachiocephalic vein. Lungs and pleura: Interstitial prominence is unchanged. No pneumothorax. Mediastinum: Mediastinal contours appear normal. Heart size is enlarged, as before Bones and chest wall: No suspicious bony lesions. Overlying soft tissues appear unremarkable. IMPRESSION: Left PICC tip persists in the right brachiocephalic vein. Dictated by: Jasmina Mcgregor M.D. on 12/07/2016 at 15:34 PROCEDURE: X-RAY CHEST ONE VIEW, PORTABLE IMPRESSION: No acute disease Dictated by: Sebastian Ibarra M.D. on 12/06/2016 at 21:17 Cardiac Echo Impression Interpretation Summary The left ventricle is severely dilated. Left ventricular systolic function is severely reduced. The ejection fraction is estimated to be 10-15%. The right ventricle is moderately dilated. Right ventricular systolic function is severely reduced. Both atria are severely dilated. There is severe mitral regurgitation. There is severe pulmonary hypertension. The right ventricular systolic pressure is estimated at 68 mmHg assuming a right atrial pressure of 15 mm Hg. The IVC is dilated (diameter is greater than 2.1 cm) and it collapses less than 50% with a sniff. This suggests a high right atrial pressure of 15 mmHg. Reading Physician:12:11 PM Other Diagnostics PROCEDURE: US ABDOMEN IMPRESSION: 1. Small amount of hepatosplenic free fluid. 2. No gallstones. Gallbladder wall thickening and pericholecystic fluid. It is unclear whether the gallbladder wall thickening is secondary to gallbladder hydrops in the setting of more diffuse ascites, or if the gallbladder wall thickening and pericholecystic fluid are associated with acalculous cholecystitis. If clinical findings are equivocal for cholecystitis, HIDA scan may be helpful to further characterize findings. Dictated by: Jasmina Mcgregor M.D. on 12/07/2016 at 8:40 Brief History Per H&P by Dr. Jha on 12/06/16: Is a 61-year-old male with a history of end-stage cardiomyopathy who is followed by Dr. Miguel while here at [facility]. According to records from [facility] his last ejection fraction is 12%. Patient also notes that he has recently been hospitalized at [facility]. He is somewhat of a vague historian however. Apparently he also was diagnosed with recent C. difficile colitis. An had undergone by mouth and IV vancomycin as well as by mouth Flagyl according to would be Gen.'s ER note. Patient presented to the emergency room at [facility] for increasing shortness of breath and increasing pedal edema. Patient was accepted by Dr. Chaney slab tripper from [facility]. Findings it would be [facility] included acute on chronic renal failure. His BUN was noted to be 81 with a creatinine of 2.2 calculated GFR is 31. Her would be Gen.'s note BNP is more elevated than usual at 4000-55. Total bili is noted to be 6.4 AST is 1568 and ALT is 693 alkaline phosphatase is 478 had any recent records available from other hospitals. INR is 2.3. Lactic acid is 3.4 troponin 0.06. Digoxin level is 0.5. Patient does deny any chest pain or coughing. He denies any fevers or chills. Hospital Course Patient is a 71 year old male with a history of systolic CHF, CKD, type 2 DM, and COPD. He presented to [facility] ED on 12/06/16 and direct admitted to [facility] per Dr. Chaney's recommendation. Patient admitted to the ICU and in need of pressor support. Hospital day #1. Medical therapy ongoing at time of transfer: 1. Acute on chronic systolic congestive heart failure, present on admission - EF 10-15% with severe mitral regurgitation. - Repeat chest x-ray dose show evidence of pulmonary edema. - Received one dose of IV Lasix 80 mg overnight. Receiving a second dose of 80 mg prior to airlift. - Patient receiving dopamine via IV drip at 5 mcg/kg/min and dobutamine at 2 mcg /kg/min. 2. Acute elevation of liver enzymes, present on admission. - Uncertain of exact etiology at this time. Concern for congestive hepatopathy/ shock liver. - Dr. King of GI has been consulted and we appreciate his input. - Continue to monitor CMP. - Viral hepatitis panel ordered and pending. 3. Acute on chronic renal failure, present on admission - May be secondary to poor renal perfusion due to congestive heart failure. - Baseline appears to be closer to 1.3. - Nephrology consultation could not be obtained prior to transfer. 4. Narrow complex ventricular tachycardia, acute, ongoing. - Rate persisting in the 130s. - Patient had amiodarone drip initiated and stopped after 1 hour - initial bolus not completed. - Continue close telemetry monitoring. 5. Hypotension, acute, ongoing. - Records from [facility] indicate hypotension at their facility as well. - Patient requiring pressor support. - Dopamine and dobutamine as above in #1. 6. Hyponatremia, acute, present on admission. - Continue to monitor BMP. - Limit free water intake. - Will give another dose of IV Lasix. 7. Elevated INR, acute, present on admission - Patient is not known to be undergoing chronic anticoagulation therapy. Possibly secondary to ongoing acute liver disease. - Continue to monitor closely. 8. Positive stool PCR for C. difficile colitis and norovirus, ongoing. - Uncertain of the exact history of this and if patient has undergone treatment. - Enteric contact precautions until more information known. 9. Recent left metatarsal amputation secondary to osteomyelitis with chronic left foot wounds, present prior to admission. - Surgery done at [facility] on 11/12/16. - Float heals and do Q2 turns. - Has been evaluated for possible re-vascularization of the lower extremity. - Follow up wound care and infectious disease consultation could not be obtained this weekend. 10. Type II diabetes, chronic, present on admission. - A1c ordered and pending. Uncertain of previous measurement. - Non-DKA insulin drip initiated for better blood glucose control. - Patient currently NPO. Exam Vital Signs (Last) Date Time Temp Pulse Resp B/P Pulse Ox O2 Delivery O2 Flow Rate FiO2 12/07/16 06:09 134 12/07/16 04:30 36.1 22 82/66 96 Room Air 12/06/16 20:05 2.00 Exam Exam done 12/07/16 0800: General: Patient with oxymask in place, laying in ICU bed, no acute distress Mouth: no thrush appreciated, mucous membranes dry Neck: No JVD appreciated, no lymphadenopathy CV: Regular rate and rhythm with no murmur appreciated Respiratory: Expiratory wheezes and otherwise clear breath sounds anteriorly Abdomen: slow bowel tones, non-tender, soft, no organomegaly appreciated Extremities: moderate pitting edema present in both lower extremities; no cyanosis or clubbing present; Left PICC line Pulses: radial pulse present and equivalent bilaterally, dorsalis pedis pulse difficult to appreciate bilaterally Skin: Cool and dry, wound present on left foot : Manzano currently not in place Test 12/06/16 21:15 12/07/16 00:17 12/07/16 03:00 12/07/16 10:45 Magnesium Level 2.0mg/dL (1.6-2.6) Ammonia 17ug/dL (18-53) Hepatitis C Comment . Urine Color Dark yellow (YELLOW) Urine Appearance Clear (CLEAR,HAZY) Urine pH 5.0 (5.0-8.0) Urine Specific Marty 1.025 (1.003-1.035) Urine Protein Tracemg/dL (NEG,TRACE) Urine Glucose (UA) Negativemg/dL (NEGATIVE) Urine Ketones Negativemg/dL (NEGATIVE) Urine Occult Blood Negative (NEGATIVE) Urine Nitrite Negative (NEGATIVE) Urine Bilirubin Small (NEGATIVE) Urine Ictotest Positive (Negative) Urine Urobilinogen Normalmg/dL (NORMAL) Urine Leukocyte Esterase Negative (NEGATIVE) Urine RBC 0-2/hpf (0-2) Urine WBC 0-5/hpf (0-5) Urine Epithelial Cells Few/hpf (NONE-MOD) Urine Crystals Amorphous urates (NONE Urine Bacteria None/hpf (NONE-FEW) Urine Hyaline Casts 02/14/lpf (NONE) Urine Granular Casts None seen (NONE SEEN) Urine Waxy Casts None seen (NONE SEEN) Urine Red Blood Cell Casts None seen (NONE SEEN) Urine White Blood Cell Casts None seen (NONE SEEN) Urine Mucus None seen (None Seen) Urine Trichomonas None seen (NONE SEEN) Urine Yeast None (NONE SEEN) Urine Culture Reflexed Not indicated White Blood Count 10.3th/mm3 (3.8-10.1) Red Blood Count 3.75mil/mm3 (4.40-5.80) Hemoglobin 11.3g/dL (13.8-17.2) Hematocrit 32.0% (41.0-50.0) Mean Corpuscular Volume 85.3fL (81-100) Mean Corpuscular Hemoglobin 30.1pg (27.0-35.0) Mean Corpuscular Hemoglobin Concent 35.3% (32.0-37.0) Red Cell Distribution Width 16.4% (12.3-15.4) Platelet Count 194bil/L (150-400) Neutrophils (%) (Auto) 62.5% (40-74) Lymphocytes (%) (Auto) 21.7% (14-46) Monocytes (%) (Auto) 14.3% (4-12) Eosinophils (%) (Auto) 0.8% (0-5) Basophils (%) (Auto) 0.3% (0-3) Prothrombin Time 21.9sec (8.1-12.5) Prothromb Time International Ratio 2.02ratio Sodium Level 127mEq/L (134-144) Potassium Level 4.8mEq/L (3.5-5.2) Chloride Level 91mEq/L (97-108) Carbon Dioxide Level 18mmol/L (18-29) Blood Urea Nitrogen 80mg/dL (8-27) Creatinine 1.91mg/dL (0.76-1.27) Estimat Glomerular Filtration Rate 38mL/min (>59) Glucose Level 232mg/dL (60-99) Calcium Level 7.7mg/dL (8.5-10.1) Total Bilirubin 3.9mg/dL (0.0-1.2) Aspartate Amino Transf (AST/SGOT) 1312U/L (0-50) Alanine Aminotransferase (ALT/SGPT) 641U/L (0-44) Alkaline Phosphatase 422U/L (25-160) Pro-B-Type Natriuretic Peptide 7879pg/mL (0-210) Total Protein 5.8g/dL (6.4-8.4) Albumin 3.0g/dL (3.4-5.0) Prealbumin 11mg/dL (20-40) Procalcitonin 0.84ng/mL (0.00-0.08) Hold Purple Top Tube Received (Received) Hold Blue Top Tube Received (Received) Troponin T 0.045ug/L (0.0-0.011) Hold Red Top Tube Received (Received) Hold Henderson Top Tube Received (Received) Test 12/07/16 10:54 Lactic Acid Level 2.7mmol/L (0.4-2.0) Discharge Medications Discharge Medications Aspirin (Aspirin) 81 Mg Tablet 81 MG PO DAILY (Reported) Atorvastatin (Lipitor) 80 Mg Tablet 80 MG PO QAM (Reported) Carvedilol (Carvedilol) 6.25 Mg Tablet 6.25 MG PO BID (Reported) Digoxin (Lanoxin) 0.125 Mg Tablet 0.125 MG PO DAILY (Reported) Insulin Aspart (NovoLOG U-100 Pen) 100 Unit/Ml Insuln.pen 1 UNITS SUBQ TIDWM ( Reported) 1unit/per 7grams carbs + 10units Insulin Glargine (Lantus U100 Solostar Insulin Pen) 100 Unit/1 Ml Insuln.pen 63 UNIT SUBQ HS (Reported) Mirtazapine (Mirtazapine) 45 Mg Tablet 30 MG PO HS (Reported) Pantoprazole DR (Pantoprazole DR) 20 Mg Tablet.dr 20 MG PO BID (Reported) Sacubitril/Valsartan (Entresto 24 mg-26 mg Tablet) 24 Mg-26 Mg Tablet 1 EACH PO BID (Reported) Spironolactone (Spironolactone) 50 Mg Tablet 25 MG PO DAILY (Reported) Torsemide (Torsemide) 20 Mg Tablet 40 MG PO DAILY (Reported) As needed Lorazepam (Ativan) 0.5 Mg Tablet 0.5 MG PO BID PRN PRN For Anxiety (Reported) Time spent Greater than 30 minutes was spent in preparation of discharge with greater than 50% of that time dedicated to patient counseling and coordination of care. . Attending Statement The patient was seen and examined together with Dr. Lee on 12/07/2016 and I agree with the history, exam and plan as outlined in the note above. . copies to: Lali Gabriel PA-C; Carmina Chaney MD, Jennifer E DO Dec 07, 2016 15:47 Phong Paredes MD Dec 08, 2016 08:59
[2016-12-07] MEDS ORDERED: Lidocaine Topical 2% 30 mL Jelly ONE (16:29)
--- NOTE | 2016-12-07 16:37 | CONS ---
[address] [address] CONSULTATION REPORT PATIENT: DAVID LOPES : 1955 MR#: [id number] ADMIT: 12/06/2016 JOB ID: [id number] DATE OF SERVICE: 12/07/2016 PHYSICIAN REQUESTING CONSULTATION: Bk Paredes MD. REASON FOR CONSULTATION: Abnormal liver function tests and history of Clostridium difficile colitis. HISTORY OF PRESENT ILLNESS: The patient is a very pleasant 61-year-old gentleman who has a history of congestive heart failure with an EF of approximately 12% who is followed by Dr. Chaney here at [facility]. He was transferred from [facility] yesterday after presenting there with increasing shortness of breath and increasing lower extremity edema, elevated liver enzymes and elevated BUN and creatinine. He was recently admitted to the [facility] and he carries a recent diagnosis of Clostridium difficile colitis and had undergone treatment with Flagyl as well as IV vancomycin. I have been asked to evaluate him regarding his abnormal liver function tests. Upon my interview with the patient, he has no known history of liver disease. He has no history of alcohol abuse. He has no history of viral hepatitis. He has no known history of using any supplemental or herbal medications. He has no family history of liver disease. On review of records from his hospitalization at [facility], I do not see any liver function tests or PT/INR to compare. Currently, he does have some mild shortness of breath. He denies any abdominal pain, nausea, vomiting, fevers, chills, or sweats. He denies any melena, hematemesis. He had been started on some dobutamine for hypotension and dopamine. PAST MEDICAL HISTORY: Significant for: 1. Cardiomyopathy and coronary artery disease, with ejection fraction of, as stated, 12%. 2. History of COPD. 3. Peripheral neuropathy. 4. Type 2 diabetes. 5. Chronic kidney disease. 6. History of anxiety. 7. Recent history of Clostridium difficile colitis. PAST SURGICAL HISTORY: Includes left foot surgery. FAMILY HISTORY: Significant for coronary artery disease, with no family history of colon cancer or liver disease. HOME MEDICATIONS: Listed are: 1. Atorvastatin. 2. Coreg. 3. Digoxin. 4. NovoLog. 5. Lantus. 6. Claritin. 7. Mirtazapine. 8. Protonix. 9. Entresto. 10. Spironolactone. 11. Furosemide. 12. Metformin. ALLERGIES: He has no known drug allergies. REVIEW OF SYSTEMS: His review of systems is otherwise negative, except as mentioned in the HPI. SOCIAL HISTORY: Denies any history of alcohol abuse. He has a history of cigarette smoking, and has done so for the past 45 years. He reports quitting approximately two weeks ago. He lives with his in [place]. PHYSICAL EXAMINATION: His temperature is 36.1, his pulse was 134, blood pressure 82/66, respiratory rate is 22 with O2 saturations of 96% with face mask. Generally, he is a white man who appears to be mildly dyspneic who appears to be mildly cachectic. HEENT: Mild icterus. Oropharynx is clear. Chest exam: Clear to auscultation bilaterally. Cardiovascular exam: S1, S2 heard. Abdomen is mildly distended, soft, nontender without hepatosplenomegaly. Bowel sounds are appreciated. Extremities with trace edema. Left foot is wrapped in a bandage. LABS: Sodium 127, potassium 4.8, chloride of 91, CO2 of 18, BUN of 80, creatinine of 1.91, glucose is 232, his total bili is 3.9, AST is 1312, ALT of 641, alkaline phosphatase is 422, troponin T is 0.029, BNP is 7879, total protein is 5.8, albumin is 3, Procalcitonin is 0.84, prealbumin is 11, his lactic acid is 2.7. His PT is 21.9, INR is 2.02. White blood cell count of 10.3, hemoglobin of 11.3, hematocrit of 32, MCV of 85.3, platelet count is 194. Viral hepatitis serologies are pending. IMAGING: Imaging which included a chest x-ray shows no acute cardiopulmonary disease. Repeat chest x-ray shows interstitial prominence and cardiomegaly suggestive of fluid overload. Abdominal ultrasound without Doppler shows that the intrahepatic bile ducts are not dilated, extrahepatic bile duct measures 4.6, the gallbladder wall measures 4.6 mm in thickness. There is trace pericholecystic fluid. No stones or sludge. Echocardiogram which shows the left ventricle severely dilated. Ejection fraction is estimated to be 10-15%. Left ventricular function is moderately decreased, left ventricular diastolic dysfunction. The right ventricle is moderately dilated. Right ventricular systolic function is severely reduced. There is moderate tricuspid regurgitation. The right ventricular systolic pressure is estimated at 68 mm. There is severe pulmonary hypertension. The IVC is dilated. IMPRESSION AND PLAN: A 61-year-old gentleman with history of severe cardiomyopathy, chronic obstructive pulmonary disease and diabetes who is presenting with shortness of breath, abnormal liver function tests and worsening renal function. PROBLEMS: 1. Abnormal liver function tests. I do not have prior liver function test to compare, however, based on the patient's history and review of medical records mentioned, I do not believe he has a history of elevated liver function testing and therefore this appears to be an acute elevation. His severe heart disease could contribute to this, but as he does not have significant edema or pulmonary edema, congestive heart failure may not be the only etiology. A viral hepatitis panel has been ordered and is pending. I will complete the chronic liver disease workup ordering lab. In the meantime, continue to follow LFTs and PT/INR. Discontinue all nonessential medications that have hepatotoxicity. There is no concern for Tylenol abuse as the patient denies taking. Would continue treating his heart failure and see if his liver function tests improve. In addition, I would recommend repeating the ultrasound of his liver with Doppler to assess flow in the portal and hepatic vessels. 2. History of Clostridium difficile colitis. Would repeat stool studies and keep on precautions that he is currently on until stool studies come back negative. 3. Normocytic anemia. Clinically, there is no evidence of bleeding, and I believe this is secondary to anemia of chronic disease. Thank you for allowing me to participate in the patient's care. If you should have any questions, please do not hesitate to contact me.
--- NOTE | 2016-12-07 17:15 | NUR ---
[employer] arrival for Trans to Pt currently A&Ox3, denies dyspnea, lightheadedness or pain. tolerating low BPs 78-86/60s, HR 112, ST, perm pacer w/ AICD. NRB @ 12L w/ intermittent sats 88-96, due to difficult peripheral circ & EF of 10-15%. interacting approp with [employer] team, able to be decisional. Gtts now Dopamine @ 5mcg/kg/min, Dobutamine @ 2mcg/kg/min as per direct consultation w/ [facility] accepting MD. See Discharge summary, CPOE, EMR. Manzano replaced; also 80mg Lasix admin per order. [id number]. Family dynamics complex; verified phone contact #s. Info relayed to both [facility] & receiving [facility] RN. RN-to-RN bedside report completed to [employer] team. Documentation including CDs, discharge summary to [facility] team. Phone report completed to [facility] RN Selene; discharge summary also directly faxed to her. To [address] for Cardiac further workup. Family @ bedside, included in transfer process as much as possible w/ meeting [employer] Team, being @ pt's side. All belongs to care of pt's Spouse, including cell phone & felting machine operator helper, sleeping bag of pt's. Lift off @ approx 1805. All required documents signed & sent in packet. Note: Family members upset with ea other and having difficulties afterwards; support offered & extensive time with family appeared helpful in resolving complex issues between family members. Pt's son requested to speak w/ Motor Bike Mechanic; Tish Martinez met with them also at length, which also helped them, as stated by several family members.
--- NOTE | 2016-12-07 18:54 | CONS ---
[address] [address] CONSULTATION REPORT PATIENT: DAVID LOPES : 1955 MR#: [id number] ADMIT: 12/06/2016 JOB ID: [id number] DATE OF SERVICE: REQUESTING PHYSICIAN: Phong Paredes MD. REASON FOR CONSULTATION: Management of abnormal kidney function. CHIEF COMPLAINT: Worsening shortness of breath. PRESENT ILLNESS: This is a 61-year-old male with significant past medical history of cardiomyopathy with ejection fraction of 12%, COPD, type 2 diabetes, chronic kidney disease stage 3 who presented to the hospital due to worsening shortness of breath and lower extremity swelling. The patient initially presented to [facility]. The patient later on was transferred to our center for higher level of care. He, unfortunately, was found to have cardiogenic shock. Initial blood pressure was 89/68. Initially, he was started on dobutamine, amiodarone and norepinephrine to support blood pressure and treat the CHF exacerbation. The repeat echocardiogram showed ejection fraction of 10% to 15%. His serum creatinine was 1.91 and BUN of 80. His previous serum creatinine was around 1.3. His current ProBNP is 7879. During my visit, the patient is very weak, he is on the face mask. He is tachycardic with frequent PVCs. The patient does not have any fever or chills, nausea, vomiting, diarrhea. His urine output overnight was 1200. Manzano catheter was removed, per patient's request. PAST MEDICAL HISTORY: 1. Coronary artery disease. 2. Severe cardiomyopathy with ejection fraction 10% to 15%. 3. Chronic kidney disease stage 3. 4. Type 2 diabetes. 5. Recent history of C. difficile colitis. 6. Chronic obstructive pulmonary disease. 7. Dyslipidemia. FAMILY HISTORY: Positive for coronary artery disease. SOCIAL HISTORY: He is a chronic smoker. He has smoked for at least 45 years. ALLERGIES: No known drug allergies. MEDICATIONS: Reviewed. Home medication includes: 1. Entresto. 2. Aldactone. 3. Torsemide. 4. Pantoprazole. 5. Mirtazapine. 6. Ativan. 7. Insulin. 8. Digoxin. 9. Coreg. 10. Lipitor. 11. Aspirin. PHYSICAL EXAMINATION: Vitals: Temperature 36.1, pulse 124, respiratory rate 22, blood pressure 82/66, O2 sat 96% on room air. General appearance: Chronically ill-looking in no acute distress. Frail. HEENT: Mild pallor. No jaundice. Positive for JVD. No lymphadenopathy. Atraumatic. Dry mucous membranes. Heart: Tachycardic, frequent PVCs. Lungs: Decreased breath sound at bases. Poor air entry. Occasional rhonchi noted. Abdomen is soft, active bowel sounds. Liver is palpable below the right costal margins about three fingerbreadths. Extremity: Trace edema in the lower extremities. Dressing on the left foot. Extremities are cold to touch. Pedal pulses are not appreciated. LABORATORY: Sodium 127, potassium 4.8, chloride 91, bicarb 18, BUN 80, creatinine 1.91, nitric acid 2.7, calcium 7.7, AST 1312, ALT 641, alkaline phos 222. Troponin 0.045. ASSESSMENT: 1. Acute kidney injury on chronic kidney disease secondary to cardiorenal syndrome. 2. Acute on chronic systolic heart failure. Current ejection fraction 10% to 15%. 3. Transaminitis likely due to cardiac congestion. 4. Hypervolemic hyponatremia secondary to congestive heart failure. PLANS: Continue supportive treatment. The patient has a very poor prognosis. May need to be transferred to a tertiary medical center. We need to improve his cardiac output. The patient was started on norepinephrine, dobutamine and amiodarone. The patient currently is hypotensive. I would hold diuretics for now. Will follow Cardiology's recommendations. There is no urgent dialysis indicated at this moment. Thank you for allowing me to participate in the care of your patient.
[2016-12-08 08:08] LABS: Hepatitis A Antibody IgM Negative (Negative); Hepatitis B Core Antibody IgM Negative (Negative)
== END 2016-12-07 18:00 | disposition short-term general hospital (02) | DRG 291 ==
LOC: CCU 19:42
PROVIDERS: ADMIT Internal Medicine; ATTEND Specialist
PROC: 4A033B1 Measurement of Arterial Pressure, Peripheral, Percutaneous Approach (ICD-10-PCS; principal; 2016-12-07)
DX: I50.23 Acute on chronic systolic (congestive) heart failure (principal); R57.0 Cardiogenic shock; I47.2 Ventricular tachycardia; E87.1 Hypo-osmolality and hyponatremia; I42.9 Cardiomyopathy, unspecified; N17.9 Acute kidney failure, unspecified; E11.8 Type 2 diabetes mellitus with unspecified complications; I34.0 Nonrheumatic mitral (valve) insufficiency; I73.9 Peripheral vascular disease, unspecified; Z79.4 Long term (current) use of insulin; Z95.810 Presence of automatic (implantable) cardiac defibrillator; I25.10 Atherosclerotic heart disease of native coronary artery without angina pectoris; G62.9 Polyneuropathy, unspecified; N18.3 Chronic kidney disease, stage 3 (moderate); D63.1 Anemia in chronic kidney disease; J44.9 Chronic obstructive pulmonary disease, unspecified; Z87.891 Personal history of nicotine dependence; Z98.61 Coronary angioplasty status; L97.529 Non-pressure chronic ulcer of other part of left foot with unspecified severity